=== PATIENT | female | born 2000 | race Caucasian/White ===

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

== ENCOUNTER 2023-02-03 11:01 | Emergency (ER) | payer MEDICAID ==
[~2023-02-03] VITALS: Ht 165.1 cm; Wt 72.6 kg
[2023-02-03] MEDS ORDERED: IBUPROFEN600 MG PO (14:29)
== END 2023-02-03 14:40 | disposition home or self-care (01) ==
LOC: ED 11:01
DX: M71.522 Other bursitis, not elsewhere classified, left elbow (principal)

== ENCOUNTER 2023-05-29 18:30 | Emergency (ER) | payer MEDICAID ==
[~2023-05-29] VITALS: Ht 165.1 cm; Wt 75.3 kg
[~2023-05-29 18:30] MED LIST: IBUPROFEN600 MG PO
[2023-05-29 21:03] LABS: BASO % 0.2 % (0.0-1.0); EOS # 0.1 10*3/uL (0.0-0.4); EOS % 1.3 % (1.0-4.0); HEMATOCRIT 42.9 % (37.0-47.0); LYMPH # 1.6 10*3/uL (1.3-4.4); LYMPH % 35.1 % (27.0-41.0); MEAN CELL VOLUME 88.5 fl (81.0-99.0); MEAN CORPUSCULAR HGB 28.5 pg (27.0-31.0); MEAN CORPUSCULAR HGB CONC 32.2 g/dl (33.0-37.0); MEAN PLATELET VOLUME 10.2 fl (9.6-12.3); MONO # 0.5 10*3/uL (0.1-1.0); MONO % 10.4 % (3.0-9.0); NEUT # 2.4 10*3/uL (2.3-7.9); NEUT % 52.6 % (47.0-73.0); PLATELET COUNT AUTOMATED 180 10*3/uL (130-400); RED BLOOD COUNT 4.85 10*6/uL (4.10-5.10); RED CELL DISTRI WIDTH 12.1 % (0-14.5); WHITE BLOOD COUNT 4.5 10*3/uL (4.8-10.8)
[2023-05-29 21:25] LABS: ALKALINE PHOSPHATASE 75 U/L (46-116); BUN 8 mg/dl (9-23); CHLORIDE 106 mmol/L (98-107); POTASSIUM 4.1 mmol/L (3.4-5.1); SGPT/ALT 9 U/L (5-49); TOTAL PROTEIN 7.7 gm/dL (6.0-8.0)
== END 2023-05-29 23:05 | disposition home or self-care (01) ==
LOC: ED 18:30
PROVIDERS: Internal Medicine
DX: U07.1 COVID-19 (principal); F41.9 Anxiety disorder, unspecified; G43.909 Migraine, unspecified, not intractable, without status migrainosus; F90.9 Attention-deficit hyperactivity disorder, unspecified type; Z91.018 Allergy to other foods

== ENCOUNTER 2023-06-24 14:43 | Emergency (ER) | payer MEDICAID ==
[~2023-06-24] VITALS: Ht 162.5 cm; Wt 72.6 kg
== END 2023-06-24 17:55 | disposition home or self-care (01) ==
LOC: ED 14:43
DX: M25.531 Pain in right wrist (principal); F41.9 Anxiety disorder, unspecified; F90.9 Attention-deficit hyperactivity disorder, unspecified type; G43.909 Migraine, unspecified, not intractable, without status migrainosus; Z91.018 Allergy to other foods